=== PATIENT | female | born 1945 | race Caucasian/White ===

== ENCOUNTER 2016-08-18 08:53 | Emergency (ER) | payer MEDICARE ==
--- NOTE | 2016-08-18 09:46 | UC ---
Respiratory Complaint HPI - HPI Summary HPI Summary: 3 week history of upper respiratory symptoms, with her granddaughter having strep a couple of weeks ago. Has had several weeks of nasal congestion and drainage. In the past 3 days, increasing cough and sputum production. Oxygen saturation is low on entry, but denies chronic cough or dyspnea. She has a 30 pack year history. - History of Current Complaint Chief Complaint: UCRespiratory Stated Complaint: SINUS CONGESTION Time Seen by Provider: 08/18/16 09:22 Hx Obtained From: Patient Hx Last Menstrual Period: n/a Onset/Duration: Gradual Onset, Lasting Days - 3 days of increased congestion and malaise. Timing: Constant Severity Initially: Moderate Severity Currently: Moderate Character: Cough: Productive Aggravating Factors: Exertion, Recumbent Position Alleviating Factors: Nothing Associated Signs And Symptoms: Positive: URI, Nasal Congestion - Risk Factors Pulmonary Embolism Risk Factors: Smoking Cardiac Risk Factors: Smoking Pseudomonas Risk Factors: Negative Tuberculosis Risk Factors: Smoking - Allergies/Home Medications Allergies/Adverse Reactions: Allergies Allergy/AdvReac Type Severity Reaction Status Date / Time Ampicillin Allergy Anaphylatic Verified 08/18/16 09:19 Shock Home Medications: Home Medications Phenylephrine-Chlorpheniramine [[place] Plus Cold &] 1.5 tab PO QPM PRN 08/05 [History Confirmed 08/18/16] PMH/Surg Hx/FS Hx/Imm Hx - Additional Past Medical History Additional PMH: 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 Skin CAncer - Family History Known Family History: Positive: Other - daughter with migraines and thyroid nodules. - Social History Occupation: Retired Lives: With Family - lives with and daughter and grandchildren. Alcohol Use: None Substance Use Type: None Smoking Status (MU): Heavy Every Day Tobacco Smoker Review of Systems Constitutional: Fatigue Skin: Negative Eyes: Negative, Other - had eye drainage and pruritis which have resolved. ENT: Ear Ache - right Respiratory: Cough Cardiovascular: Negative Gastrointestinal: Negative Genitourinary: Negative Motor: Negative Neurovascular: Negative Musculoskeletal: Negative Neurological: Headache - off and on Psychological: Negative All Other Systems Reviewed And Are Negative: Yes Physical Exam Triage Information Reviewed: Yes Appearance: Ill-Appearing - looks chronically unwell. Vital Signs: Initial Vital Signs Temp 97 F 08/18/16 09:01 Pulse 103 08/18/16 09:01 Resp 28 08/18/16 09:01 BP 147/66 08/18/16 09:01 Pulse Ox 90 08/18/16 09:01 Eye Exam: Normal Eyes: Positive: Conjunctiva Clear ENT: Positive: TM red - mild erythema on the left. Dental Exam: Normal Neck: Positive: Supple, Enlarged Nodes @ - left anterior cervical node mildly enlarged and tender. Respiratory: Positive: Decreased breath sounds, Wheezing - prolonged expiration and wheeze. Cardiovascular: Positive: RRR, No Murmur, Brisk Capillary Refill Musculoskeletal Exam: Normal Neurological: Positive: Alert, Muscle Tone Normal Psychological Exam: Other - mildly depressed mood and affect. Skin Exam: Normal UC Diagnostic Evaluation - Laboratory O2 Sat by Pulse Oximetry: 90 Diagnostic Studies Comment: chest xay shows hyperinflation and chronic interstitial change. Respiratory Course/Dx - Course Course Of Treatment: doxycycline for treatment of bronchitis. Discussed hypoxia , which is likely chronic, and advised needs follow up and PFT's. Offered inhalant, but declined. Urged smoke stopping. - Differential Dx/Diagnosis Provider Diagnoses: chronic bronchitis, likely COPD and interstitial lung disease. Smoking dependency. Discharge - Discharge Plan Condition: Stable Disposition: HOME Prescriptions: Doxycycline (Monohydrate) [Doxycycline Monohydrate] 100 mg PO BID #20 cap Patient Education Materials: Chronic Bronchitis (ED) Referrals: No Primary Care Phys,NOPCP [Primary Care Provider] - Additional Instructions: As reviewed, you show evidence of lung changes and low oxygen. most likely from residential smoking. I urge to stop smoking as soon as possible The antibiotic should help with the chest congestion and decrease the sputum. Doxycycline can cause stomach upset and diarrhea. You can take it with food, but NOT dairy. You might benefit from using an inhaler, but you declined use today. I urge you to find a primary care doctor.
--- NOTE | 2016-08-18 11:01 | RAD ---
INDICATION: Cough COMPARISON: None TECHNIQUE: PA and lateral dual-energy views were obtained. FINDINGS: Bones/Soft Tissues: There are no acute bony findings. Cardiomediastinal: The cardiomediastinal silhouette is normal. Lungs: There are no focal infiltrates. There is hyperinflation with presumed mild interstitial change. Pleura: There are no pleural effusions. Other: None IMPRESSION: HYPERINFLATION WITH MILD INTERSTITIAL CHANGES.
[2016-08-18 11:03] VITALS: BP 141/79
== END 2016-08-18 11:05 | disposition home or self-care (01) ==
LOC: UCCORT 08:53
DX: J42 Unspecified chronic bronchitis (principal); R03.0 Elevated blood-pressure reading, without diagnosis of hypertension; F17.210 Nicotine dependence, cigarettes, uncomplicated; Z88.1 Allergy status to other antibiotic agents
CPT/HCPCS: 71020; 99212; G0463

== ENCOUNTER 2019-03-24 11:06 | Emergency (ER) | payer MEDICARE ==
--- NOTE | 2019-03-24 11:46 | UC ---
Respiratory Complaint HPI - HPI Summary HPI Summary: Patient is 74 year old , who present today to the urgent care with upper respiratory symptoms since yesterday afternoon. She has 3 granddaughters were been diagnosed with Strep throat and pneumonia .d She reports sore throat, bilateral ear pain, productive cough with pale yellow secretions that started last night. Is animal care provider for . . Denies any fever, chest pain or shortness of breath . No diaphoresis. Denies any abdominal pain , nausea or vomiting , diarrhea or constipation. - History of Current Complaint Chief Complaint: UCRespiratory Stated Complaint: COUGH,THROAT,EAR COMPLAINTS Time Seen by Provider: 03/24/19 11:37 Hx Obtained From: Patient Hx Last Menstrual Period: n/a Pain Intensity: 4 - Allergies/Home Medications Allergies/Adverse Reactions: Allergies Allergy/AdvReac Type Severity Reaction Status Date / Time ampicillin Allergy Anaphylatic Verified 03/24/19 11:26 Shock PMH/Surg Hx/FS Hx/Imm Hx - Additional Past Medical History Additional PMH: Past Medical History : Skin cancer Past Surgical History: Dental surgery Family History : non contributory Social History : No alcohol, daily smoker, no drug use. She is a caregiver for her . Previously Healthy: Yes - Surgical History Surgical History: Yes Surgery Procedure, Year, and Place: Dental surgery. Skin CAncer - Family History Known Family History: Positive: Unknown, Other - daughter with migraines and thyroid nodules. - Social History Alcohol Use: None Substance Use Type: None Smoking Status (MU): Heavy Every Day Tobacco Smoker Type: Cigarettes Amount Used/How Often: 3/4 PPD Review of Systems All Other Systems Reviewed And Are Negative: Yes Constitutional: Positive: Negative Skin: Positive: Negative Eyes: Positive: Negative ENT: Positive: Sore Throat Respiratory: Positive: Cough - yellow sputum. Negative: Shortness Of Breath Cardiovascular: Positive: Negative. Negative: Chest Pain Gastrointestinal: Positive: Negative Genitourinary: Positive: Negative Motor: Positive: Negative Neurovascular: Positive: Negative Musculoskeletal: Positive: Negative Neurological: Positive: Negative Psychological: Positive: Negative Is Patient Immunocompromised?: No Physical Exam - Summary Physical Exam Summary: Physical Exam: Const: Appears well. No signs of apparent distress present. Alert and oriented x 3. Musculo: Walks with a normal gait. Head/Face: Atraumatic, normocephalic on inspection. Eyes: EOMI and PERRLA in both eyes. Conjunctivae clear. No discharge noted No tenderness to palpation on maxillary and frontal sinus. There is pharyngeal erythema without any exudates . Uvula is midline. No cervical or submandibular lymphadenopathy noted. Respiratory: Respirations are unlabored. Slightly decreased air entry on the left side, rhonchi noted along with some crepitations on the left side throughout the lung. Right lung air entry within normal limits . No wheezing noted bilaterally CVS: Regular rate and Rhythm, S1S2 normal , no murmurs identified. Extremities: Peripheral circulation is grossly normal. Pulses 2+ Abdomen : Soft non tender , nondistended , Bowel sounds present . No guarding , rebound tenderness or rigidity noted. Skin: No lesions or rash located on the upper extremities or on the lower extremities. Neuro: Cranial nerves II to XII intact, motor and sensory intact. DTR Intact bilaterally. Mood is normal. Affect is normal. Triage Information Reviewed: Yes Vital Signs: Initial Vital Signs Temp 98.4 F 03/24/19 11:27 Pulse 106 03/24/19 11:27 Resp 22 03/24/19 11:27 BP 155/74 03/24/19 11:27 Pulse Ox 90 03/24/19 11:27 Vital Signs Reviewed: Yes Diagnostics - Radiology No standard instances Radiology Interpretation Completed By: Radiologist - chest x-ray:The lungs are hyperinflated and clear. No pleural effusion is seen. IMPRESSION: FINDINGS SUGGESTIVE OF COPD, NO EVIDENCE FOR ACUTE DISEASE. . Respiratory Course/Dx - Course Course Of Treatment: During the visit today, we obtained chest x-ray:The lungs are hyperinflated and clear. No pleural effusion is seen. IMPRESSION: FINDINGS SUGGESTIVE OF COPD , NO EVIDENCE FOR ACUTE DISEASE. . Rapid strep test is neg She was slightly tachycardic and tachypneic along with saturation at 90% but she says her saturations are usually low. I advised her to have a nebulizer treatment which she declined. She was given 1 inhalation treatment with albuterol HFA. I did the mandible vitals with pulse rate at 80 and her respiratory rate at 14. She is afebrile here on repeat vitals and her saturation was 91%. We discussed the findings and further plan and she is comfortable being discharged home. I will prescribe the medication to the pharmacy . Plan to follow up with PMD in 2 days . (She does not have a PMD, her sees and she would like to follow up with him) Strict precautions discussed Patient expressed understanding . - Differential Dx/Diagnosis Provider Diagnosis: COPD exacerbation Discharge ED - Sign-Out/Discharge Documenting (check all that apply): Patient Departure All imaging exams completed and their final reports reviewed: Yes - Discharge Plan Condition: Stable Disposition: HOME Prescriptions: Azithromyxin [place] (NF) [Z-[place] (Zithromax) 250 mg tabs #6] 2 tab PO .TODAY, THEN 1 DAILY #6 tab predniSONE [Prednisone 20 MG TAB] 60 mg PO DAILY 5 Days #15 tablet Patient Education Materials: COPD (Chronic Obstructive Pulmonary Disease) (ED) Referrals: Cory Dickey MD [Medical Doctor] - No Primary Care Phys,NOPCP [Primary Care Provider] - Additional Instructions: Please start taking the medication as prescribed to the pharmacy . Follow up with your primary care doctor in 2 days. Patients blood pressure slightly high in Urgent care today , plan follow up with PCP for better control within 4 weeks Return to Urgent care / ER if symptoms get worse. - Billing Disposition and Condition Condition: STABLE Disposition: Home
[2019-03-24] MEDS ORDERED: Albuterol HFA INHALER* 8 gm MDI INH ONE ×2 (11:47→11:59)
[2019-03-24 12:21] VITALS: BP 135/71
== END 2019-03-24 12:41 | disposition home or self-care (01) ==
LOC: UCCORT 11:06
DX: J44.1 Chronic obstructive pulmonary disease with (acute) exacerbation (principal); J45.901 Unspecified asthma with (acute) exacerbation; H92.03 Otalgia, bilateral; Z88.0 Allergy status to penicillin; Z85.828 Personal history of other malignant neoplasm of skin
CPT/HCPCS: 71046; 87651; 99212; A9270-GY; G0463